=== PATIENT | female | born 2000 | race African-American/Black ===

== ENCOUNTER 2023-07-09 18:47 | Observation (INO) | payer MEDICAID, SELFPAY ==
--- NOTE | 2023-07-09 18:47 | PC.NURSE ---
1847 PT PRESENTS TO LABOR AND DELIVERY WITH COMPLAINTS OF CONTRACTIONS. PT STATES THAT SHE DOES NOT HAVE CARE, BUT WAS SEEN AT A HOSPITAL IN [place], [place] IN JUNE. PT STATES MARÍA ELENA 07/20/2023, L2. PT TAKEN TO ROOM 105.
--- NOTE | 2023-07-09 19:28 | PC.NURSE ---
THIS RN AT BEDSIDE. IV INSERTION ATTEMPTED. PT REFUSED. PT EDUCATED ON RISKS AND BENEFITS. PT CONSENTS TO IV PLACEMENT. WHEN THIS NURSE STUCK THE PT, SHE JUMPED AND SCREAMED FUCKING BITCH, THAT HURT ME AND WITHDREW ARM, REFUSING FURTHER IV PLACEMENT.
--- NOTE | 2023-07-09 19:46 | PC.NURSE ---
THIS RN AT BEDSIDE TO GO OVER CONSENTS AND GET PT SIGNATURES. PT STATES THAT SHE DOESN'T WANT TO HEAR ABOUT POTENTIAL RISKS AND SHE JUST WANTS TO LEAVE THIS HOSPITAL. THIS RN INFORMS PT THAT SHE HAS A RIGHT TO LEAVE AT ANY POINT AND I CAN GET A FORM FOR HER TO SIGN AND LEAVE.
--- NOTE | 2023-07-09 19:50 | PC.NURSE ---
THIS RN AT BEDSIDE TO HAVE PT SIGN AMA FORM. PT EDUCATED ON POTENTIAL RISKS OF LEAVING HOSPITAL AGAINST MEDICAL ADVISE. PT STARTS SCREAMING THAT SHE DOESN'T WANT TO HEAR ABOUT RISKS AND SHE WANTS TO LEAVE. AMA FORM SIGNED BY PT AND THIS RN.
--- NOTE | 2023-07-12 11:29 | PM.OBTRLD ---
OB - Triage/Final Diagnosis Visit Information Reason for evaluation: threatened labor Comments/Additional reasons for admission: I have assessed the risk for this patient, Graham Erwin, and determined that she would benefit from observation care.
== END 2023-07-09 19:50 | disposition left against medical advice (07) ==
PROVIDERS: Admitting Provider Obstetrics & Gynecology; Visit Provider Obstetrics & Gynecology
DX: O47.9 False labor, unspecified (principal); Z3A.00 Weeks of gestation of pregnancy not specified
CPT/HCPCS: G0378